=== PATIENT | female | born 1990 | race Hispanic/Latino ===

== ENCOUNTER 2019-08-25 11:22 | Emergency (ER) | payer SELFPAY ==
[2019-08-25 12:22] LABS: Absolute Lymphocytes (CBC) 1.5 K/uL (0.7-4.9); Basophils % 0.2 % (0-1.3); Hematocrit 34.8 % (36.0-45.0); Lymphocytes % 34.6 % (15.3-44.8); MPV 8.7 fL (7.6-11.3); RBC Red Blood Cell Count 4.13 M/uL (3.86-4.86)
[2019-08-25 13:04] LABS: Urine Appearance CLEAR; Urine Bilirubin NEGATIVE (NEG); Urine Blood NEGATIVE (NEG); Urine Color YELLOW; Urine Glucose NEGATIVE (NEG); Urine Protein NEGATIVE (NEG); Urine Specific Gravity 1.015 (1.005-1.030); Urine Urobilinogen 0.2 mg/dL (0.2-1.0); Urine pH 7.5 (5.0-7.0)
[2019-08-25 13:06] LABS: Urine Microscopic Reflex NO UMIC
[2019-08-25 13:11] LABS: Urine Blood NEGATIVE (NEG); Urine Glucose NEGATIVE (NEG); Urine Protein NEGATIVE (NEG); Urine pH 7.5 (5.0-7.0)
--- NOTE | 2019-08-25 13:21 | ER ---
Nurse's Notes [facility] Name: Kayleigh Mora Age: 29 yrs Sex: Female : 1990 Arrival Date: 08/25/2019 Time: 11:24 Bed 12 Private MD: Diagnosis: Influenza A. 1 st trimester Presentation: 08/25 11:37 Presenting complaint: Patient states: Achy all over, subjective fever since Wednesday, jl7 coughing and runny nose since yesterday, went to the clinic did a flu test and it's positive and they told her to come here since she's . Transition of care: patient was not received from another setting of care. Onset of symptoms was August 21, 2019. Risk Assessment: Do you want to hurt yourself or someone else? Patient reports no desire to harm self or others. Initial Sepsis Screen: Does the patient meet any 2 criteria? No. Patient's initial sepsis screen is negative. Does the patient have a suspected source of infection? No. Patient's initial sepsis screen is negative. Care prior to arrival: Medication(s) given: Tylenol, at 0600. 11:37 Method Of Arrival: Ambulatory jl7 11:37 Acuity: ABDI 4 jl7 Triage Assessment: 11:41 General: Appears in no apparent distress. uncomfortable, Behavior is calm, cooperative, jl7 appropriate for age. Pain: Complains of pain in achy all over Pain currently is 6 out of 10 on a pain scale. 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 - Social history:: Smoking status: Patient/guardian denies using tobacco. - Ebola Screening: : No symptoms or risks identified at this time. Screenin:45 Abuse screen: Denies threats or abuse. Denies injuries from another. Nutritional jl7 screening: No deficits noted. Tuberculosis screening: No symptoms or risk factors identified. Fall Risk None identified. Assessment: 11:45 General: See triage assessment. jl7 12:45 Reassessment: Patient appears in no apparent distress at this time. No changes from [facility] previously documented assessment. Patient and/or family updated on plan of care and expected duration. Pain level reassessed. Patient is alert, oriented x 3, equal unlabored respirations, skin warm/dry/pink. Vital Signs: 11:41 BP 106 / 88; Pulse 79; Resp 16 S; Temp 98.4(O); Pulse Ox 100% on R/A; Weight 64.86 kg jl7 (R); Pain 6/10; ED Course: 11:24 Patient arrived in ED. as 11:41 Triage completed. 7 11:41 Arm band placed on right wrist. 7 11:43 Devyn Melara RN is Primary Nurse. [facility] 11:44 Anoop Ferraro MD is Attending Physician. [facility] 12:32 Initial lab(s) drawn, by wi, sent to lab. Urine collected: clean catch specimen, cloudy.[facility] 12:32 Throat Culture Sent. [facility] 12:32 Urine --Ancillary (enter results) Sent. [facility] 12:32 Urine Dipstick--Ancillary (enter results) Sent. 5 12:32 UA Sent. 5 12:43 Patient has correct armband on for positive identification. Call light in reach. [facility] 13:41 No provider procedures requiring assistance completed. Patient did not have IV access [facility] during this emergency room visit. Administered Medications: No medications were administered Outcome: 13:20 Discharge ordered by . pk 13:41 Discharged to home ambulatory. jl7 13:41 Condition: stable 13:41 Discharge instructions given to patient, Instructed on discharge instructions, follow up and referral plans. medication usage, Demonstrated understanding of instructions, follow-up care, medications. 13:42 Patient left the ED. [facility] Signatures: Anoop Ferraro MD MD Lizeth Zavaleta Maria [facility] Devyn Melara, AEB RN [facility]
--- NOTE | 2019-08-25 13:22 | EDPHYS ---
Physician Documentation [facility] Name: Kayleigh Mora Age: 29 yrs Sex: Female : 1990 Arrival Date: 08/25/2019 Time: 11:24 Bed 12 Private MD: ED Physician Anoop Ferraro HPI: 08/25 11:56 This 29 yrs old Female presents to ER via Ambulatory with complaints of Flu pkl Symptoms - 5 wks preg. 11:56 The patient or guardian reports cough, described as mild, with no sputum, flu symptoms, pkl low-grade fever, myalgias. Onset: The symptoms/episode began/occurred 4 day(s) ago. 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 - Social history:: Smoking status: Patient/guardian denies using tobacco. - Ebola Screening: : No symptoms or risks identified at this time. ROS: 11:58 Eyes: Negative for injury, pain, redness, and discharge. pkl 11:58 ENT: Positive for nasal discharge. 11:58 Neck: Negative for stiffness. 11:58 Cardiovascular: Negative for chest pain. 11:58 Respiratory: Positive for cough, with clear sputum. 11:58 Abdomen/GI: Negative for abdominal pain, nausea, vomiting, and diarrhea. 11:58 Back: Negative for acute changes. 11:58 : Negative for urinary symptoms. 11:58 MS/extremity: Negative for acute changes. 11:58 Skin: Negative for rash. 11:58 Neuro: Negative for altered mental status, loss of consciousness. Exam: 11:58 Head/Face: Normocephalic, atraumatic. Eyes: Pupils equal round and reactive to light, pkl extra-ocular motions intact. Lids and lashes normal. Conjunctiva and sclera are non-icteric and not injected. Cornea within normal limits. Periorbital areas with no swelling, redness, or edema. ENT: Nares patent. No nasal discharge, no septal abnormalities noted. Tympanic membranes are normal and external auditory canals are clear. Oropharynx with no redness, swelling, or masses, exudates, or evidence of obstruction, uvula midline. Mucous membranes moist. Neck: Trachea midline, no thyromegaly or masses palpated, and no cervical lymphadenopathy. Supple, full range of motion without nuchal rigidity, or vertebral point tenderness. No Meningismus. Chest/axilla: Normal chest wall appearance and motion. Nontender with no deformity. No lesions are appreciated. Cardiovascular: Regular rate and rhythm with a normal S1 and S2. No gallops, murmurs, or rubs. Normal PMI, no JVD. No pulse deficits. 11:58 Respiratory: the patient does not display signs of respiratory distress, Respirations: normal, Breath sounds: are clear throughout. 11:58 Abdomen/GI: Bowel sounds: normal, Palpation: abdomen is soft and non-tender, in all quadrants. 11:58 Back: Exam negative for acute changes. 11:58 : Exam negative for acute changes. 11:58 Musculoskeletal/extremity: Exam is negative for acute changes. 11:58 Skin: Exam negative for rash. 11:58 Neuro: Orientation: is normal, Mentation: is normal, Cranial nerves: grossly normal, Motor: is normal. Vital Signs: 11:41 BP 106 / 88; Pulse 79; Resp 16 S; Temp 98.4(O); Pulse Ox 100% on R/A; Weight 64.86 kg jl7 (R); Pain 6/10; MDM: 11:44 Patient medically screened. pkl 13:19 Data reviewed: vital signs, nurses notes, lab test result(s). pkl 08/25 11:56 Order name: CBC with Diff; Complete Time: 12:37 pkl 08/25 11:56 Order name: Quantitative Hcg; Complete Time: 13:18 pkl 08/25 11:56 Order name: Flu; Complete Time: 12:37 pkl 08/25 11:56 Order name: Strep; Complete Time: 12:37 pkl 08/25 11:58 Order name: UA; Complete Time: 13:18 pkl 08/25 12:28 Order name: Urine Dipstick--Ancillary (enter results); Complete Time: 13:18 em1 08/25 12:28 Order name: Urine --Ancillary (enter results); Complete Time: 13:18 em1 08/25 12:31 Order name: Throat Culture EDMS Administered Medications: No medications were administered Disposition: 08/25/19 13:20 Discharged to Home. Impression: Influenza A. 1 st trimester . - Condition is Stable. - Discharge Instructions: and Influenza. - Prescriptions for Tamiflu 75 mg Oral Capsule - take 1 tablet by ORAL route every 12 hours for 5 days; 10 tablet. - Medication Reconciliation Form, Thank You Letter, Antibiotic Education, Prescription Opioid Use form. - Follow up: Private Physician; When: 2 - 3 days; Reason: Re-evaluation by your physician. - Problem is new. - Symptoms are unchanged. Signatures: Dispatcher [employer] EDMS Anoop Ferraro MD MD pkl Devyn Melara RN RN jl7 Corrections: (The following items were deleted from the chart) 13:42 13:20 08/25/2019 13:20 Discharged to Home. Impression: Influenza A. 1 st trimester jl7 . Condition is Stable. Forms are Medication Reconciliation Form, Thank You Letter, Antibiotic Education, Prescription Opioid Use. Follow up: Private Physician; When: 2 - 3 days; Reason: Re-evaluation by your physician. Problem is new. Symptoms are unchanged. pkl
[2019-08-25 13:53] VITALS: BP 106/88; TEMP 98.4; O2SAT 100
== END 2019-08-25 13:42 | disposition home or self-care (01) ==
LOC: ER 11:22
DX: O26.891 Other specified pregnancy related conditions, first trimester (principal); J09.X2 Influenza due to identified novel influenza A virus with other respiratory manifestations
CPT/HCPCS: 36415; 81003; 81025; 84702; 85025; 87070; 87081; 87804; 99283